=== PATIENT | female | born 2000 | race Two or more races ===

== ENCOUNTER 2022-08-04 14:25 | Emergency (ER) | payer BC, OTHER ==
[~2022-08-04] VITALS: Ht 157.5 cm; Wt 74.9 kg
[2022-08-04] MEDS ORDERED: MONT-8 PO (18:30)
[2022-08-04] MEDS ORDERED: BENZ100C19 PO (18:30)
[2022-08-04] MEDS ORDERED: AMOX875T3 PO (18:30)
[2022-08-04 19:30] VITALS: BP 143/94
== END 2022-08-04 19:39 | disposition home or self-care (01) ==
LOC: ER 14:25
DX: H66.93 Otitis media, unspecified, bilateral (principal); Z20.822 Contact with and (suspected) exposure to COVID-19
CPT/HCPCS: 36415; 87426; 87804

== ENCOUNTER 2023-04-21 11:18 | Emergency (ER) | payer BC ==
[~2023-04-21] VITALS: Ht 157.5 cm; Wt 78.0 kg
[~2023-04-21 11:18] MED LIST: AMOX875T3 PO; BENZ100C19 PO; MONT-8 PO
[2023-04-21 14:52] VITALS: BP 128/82; PULSE 98; RESP 20; TEMP 98.5; O2SAT 97
== END 2023-04-21 11:30 | disposition left against medical advice (07) ==
LOC: ER 11:18
DX: H92.03 Otalgia, bilateral (principal); Z53.21 Procedure and treatment not carried out due to patient leaving prior to being seen by health care provider